=== PATIENT | male | born 1970 | race Caucasian/White ===

== ENCOUNTER → 2017-09-01 | Outpatient (CLI) | payer OTHER, MEDICAID ==
[~2017-09-01] MED LIST: ACETAMINOPHEN-1 EAC1 PO; AUGMENTIN 875875 MG PO; BUTALB-APAP-CA1 EACH PO; CIPRO500 MG PO; FLOMAX0.4 MG PO; HYDROCODONE-AP1 EAC6 PO; IBUPROFEN 600600 M1 PO; NOHOMEMEDICATIONS; PENICILLIN V P500 MG PO; ROBAXIN500 MG PO
== END ==
LOC: M.RAD 15:34
DX: M79.641 Pain in right hand (principal)

== ENCOUNTER 2018-11-23 12:51 | Emergency (ER) | payer OTHER ==
[~2018-11-23] VITALS: Ht 188 cm; Wt 83.9 kg
[~2018-11-23 12:51] MED LIST changes: +IPRAT-ALBUT 0.5-3 ML PO; +MEDROLDOSEPACK PO; +NEBULIZER MISCELL; +VENTOLIN HFA 1818 GM INH
[2018-11-23] MEDS ORDERED: PREDNISONE 20 M20 M1 PO (13:18)
[2018-11-23] MEDS ORDERED: PREDNISONE 10 M10 MG PO (13:21)
[2018-11-23 13:30] VITALS: BP 136/68
== END 2018-11-23 13:30 | disposition home or self-care (01) ==
LOC: M.ERS 12:51
DX: L30.9 Dermatitis, unspecified (principal); F17.210 Nicotine dependence, cigarettes, uncomplicated; F41.9 Anxiety disorder, unspecified; F32.9 Major depressive disorder, single episode, unspecified; I10 Essential (primary) hypertension

== ENCOUNTER 2019-01-29 18:24 | Emergency (ER) | payer OTHER ==
[~2019-01-29] VITALS: Ht 188 cm; Wt 83.9 kg
[~2019-01-29 18:24] MED LIST changes: +HYDROXYZINE HCL25 M2 PO; +PREDNISONE 10 M10 MG PO; +PREDNISONE 20 M20 M1 PO
[2019-01-29 19:36] VITALS: BP 134/80
== END 2019-01-29 19:38 | disposition home or self-care (01) ==
LOC: M.ERS 18:24
DX: R21 Rash and other nonspecific skin eruption (principal); I10 Essential (primary) hypertension; F41.9 Anxiety disorder, unspecified; F32.9 Major depressive disorder, single episode, unspecified; F17.210 Nicotine dependence, cigarettes, uncomplicated

== ENCOUNTER 2019-03-08 20:21 | Emergency (ER) | payer OTHER ==
[~2019-03-08] VITALS: Ht 188 cm; Wt 83.9 kg
[2019-03-08] MEDS ORDERED: HYDROXYZINE HCL25 M2 PO (21:13)
[2019-03-08] MEDS ORDERED: PREDNISONE 10 M10 MG PO (21:13)
[2019-03-08] MEDS ORDERED: HYDROCORTISONE3011 TOP (21:13)
[2019-03-08 21:32] VITALS: BP 137/87
== END 2019-03-08 22:09 | disposition home or self-care (01) ==
LOC: M.ERS 20:21
DX: R21 Rash and other nonspecific skin eruption (principal); F41.9 Anxiety disorder, unspecified; F32.9 Major depressive disorder, single episode, unspecified; F17.210 Nicotine dependence, cigarettes, uncomplicated; I10 Essential (primary) hypertension; Z87.442 Personal history of urinary calculi

== ENCOUNTER 2019-03-29 09:48 | Emergency (ER) | payer OTHER ==
[~2019-03-29] VITALS: Ht 188 cm; Wt 83.9 kg
[~2019-03-29 09:48] MED LIST changes: +HYDROCORTISONE3011 TOP
[2019-03-29 10:22] LABS: ABSOLUTE EOSINOPHILS 0.1 thou/uL (0.0-0.7); ABSOLUTE LYMPHOCYTES 1.9 thou/uL (0.8-5.3); ABSOLUTE MONOCYTES 0.7 thou/uL (0.0-1.2); ABSOLUTE NEUTROPHILS 4.7 thou/uL (1.6-8.1); BASOPHILS 0.6 %; EOSINOPHILS 1.7 %; HEMATOCRIT 46.2 % (42.0-52.0); HEMOGLOBIN 15.7 gm/dL (14.0-18.0); LYMPHOCYTES 25.7 %; MCH 31.4 pg (26.0-34.0); MCHC 33.9 g/dL (28.0-37.0); MCV 92.6 fL (80.0-100.0); MONOCYTES 8.9 %; MPV 7.7 fl. (7.2-11.1); NUCLEATED RBCS 0 /100WBC; PLATELET COUNT* 148 thou/uL (150-400); POLYS 63.1 %; RBC 4.99 mil/uL (4.50-6.00); RDW-CV 13.9 % (10.5-14.5); WBC 7.4 thou/uL (4.0-11.0)
[2019-03-29 10:36] LABS: CALCIUM 8.5 mg/dL (8.5-10.1); CREATININE 0.9 mg/dL (0.6-1.3); POTASSIUM 4.1 mmol/L (3.5-5.1)
[2019-03-29 10:46] LABS: ALBUMIN 3.5 g/dL (3.4-5.0); TOTAL BILIRUBIN 0.4 mg/dL (<0.1-1.0); TOTAL PROTEIN 6.2 g/dL (6.4-8.2)
[2019-03-29] MEDS ORDERED: DOXYCYCLINE 10100 M1 PO (11:11)
[2019-03-29] MEDS ORDERED: NABUMETONE 750750 M1 PO (11:41)
[2019-03-29 12:05] VITALS: BP 134/73
== END 2019-03-29 12:05 | disposition home or self-care (01) ==
LOC: M.ERS 09:48
PROVIDERS: Nurse Practitioner Family
DX: N45.2 Orchitis (principal); F41.9 Anxiety disorder, unspecified; F32.9 Major depressive disorder, single episode, unspecified; I10 Essential (primary) hypertension; F17.210 Nicotine dependence, cigarettes, uncomplicated; Z87.442 Personal history of urinary calculi

== ENCOUNTER 2020-12-25 00:39 | Emergency (ER) | payer OTHER ==
[~2020-12-25] VITALS: Ht 188 cm; Wt 93.9 kg
[~2020-12-25 00:39] MED LIST changes: +DOXYCYCLINE 10100 M1 PO; +NABUMETONE 750750 M1 PO
[2020-12-25] MEDS ORDERED: GENTAK5 ML TOP (01:35)
[2020-12-25 02:00] VITALS: BP 160/85
== END 2020-12-25 02:01 | disposition home or self-care (01) ==
LOC: M.ERS 00:39
DX: H16.8 Other keratitis (principal); F12.90 Cannabis use, unspecified, uncomplicated; F17.210 Nicotine dependence, cigarettes, uncomplicated; I10 Essential (primary) hypertension; Z87.442 Personal history of urinary calculi